=== PATIENT | female | born 1930 | race Caucasian/White ===

== ENCOUNTER 2017-10-16 11:23 | Emergency (ER) | payer MEDICARE, MEDICAID ==
[~2017-10-16] VITALS: Ht 144.8 cm; Wt 60.0 kg
[2017-10-16] MEDS ORDERED: ONDANSETRON HCL 4MG/2ML VIAL IV STA (12:08)
[2017-10-16] MEDS ORDERED: MORPHINE SULFATE 4 MG/ML CPJ (NOT FOR IM USE) IV STA (12:08)
[2017-10-16] MEDS ORDERED: SODIUM CHLORIDE 0.9% 500 ML IV ONE (12:09)
[2017-10-16 12:52] LABS: HEMATOCRIT. 33.7 % (36.0-48.0); HEMOGLOBIN. 11.6 g/dL (12.0-16.0); MEAN CORPUSCULAR HEMOGLOBIN 30.3 pg (28.0-32.0); MEAN CORPUSCULAR VOLUME 88.2 fL (81.0-99.0); PLATELET 206 x1000/uL (130-400); RED BLOOD CELL COUNT 3.83 mill/uL (4.2-5.4); RED CELL DISTRIBUTION WIDTH 15.2 % (11.6-14.6)
[2017-10-16 12:59] LABS: PROTHROMBIN TIME 10.5 sec (9.1-11.1)
[2017-10-16 13:00] LABS: CHLORIDE 106 mEq/L (98-107)
[2017-10-16 13:40] LABS: NUCLEATED RED BLOOD CELLS 1 /100 WBC; PLATELET ESTIMATE NORMAL
[2017-10-16 15:51] LABS: CLARITY URINE CLEAR (CLEAR); COLOR URINE YELLOW (YELLOW); KETONES URINE NEGATIVE (NEGATIVE); LEUKOCYTE ESTERASE URINE NEGATIVE (NEGATIVE); NITRITE URINE NEGATIVE (NEGATIVE); OCCULT BLOOD URINE NEGATIVE (NEGATIVE); PROTEIN URINE NEGATIVE (NEGATIVE); SPECIFIC GRAVITY URINE 1.014 (1.005-1.030); UROBILINOGEN URINE 0.2 E.U./dL (0.2-1.0)
[2017-10-16 16:33] VITALS: BP 136/55
== END 2017-10-16 16:42 | disposition home or self-care (01) ==
LOC: ER 11:23
DX: R53.1 Weakness (principal); R11.0 Nausea; R10.32 Left lower quadrant pain; M25.562 Pain in left knee
CPT/HCPCS: 36415; 71045; 73562; 80053; 81003; 83690; 83880; 84484; 85025; 85610; 93005; 96374; 96375; 99285; J2270; J2405; J7040

== ENCOUNTER 2018-07-12 12:20 | Emergency (ER) | payer MEDICARE, MEDICAID ==
[~2018-07-12] VITALS: Ht 152.4 cm; Wt 63.0 kg
[2018-07-12 13:43] LABS: BASOPHILS % 1.2 % (0.0-2.0); EOSINOPHILS % 2.5 % (0.0-5.0); HEMATOCRIT. 36.6 % (36.0-48.0); HEMOGLOBIN. 12.1 g/dL (12.0-16.0); LYMPHOCYTES % 26.9 % (20.0-50.0); MEAN CORPUSCULAR HEMOGLOBIN 30.3 pg (28.0-32.0); MEAN CORPUSCULAR VOLUME 91.2 fL (81.0-99.0); MEAN PLATELET VOLUME 10.9 fl (7.4-10.4); MONOCYTES % 9.9 % (2.0-8.0); NEUTROPHILS % 59.5 % (40.0-76.0); PLATELET 258 x1000/uL (130-400); RED BLOOD CELL COUNT 4.01 mill/uL (4.2-5.4); RED CELL DISTRIBUTION WIDTH 13.3 % (11.6-14.6)
[2018-07-12 13:45] LABS: CHLORIDE 101 mEq/L (98-107)
[2018-07-12] MEDS ORDERED: SODIUM CHLORIDE 0.9% 1,000 ML IV ONE (14:17)
[2018-07-12 14:42] LABS: CLARITY URINE CLEAR (CLEAR); COLOR URINE YELLOW (YELLOW); KETONES URINE NEGATIVE (NEGATIVE); LEUKOCYTE ESTERASE URINE NEGATIVE (NEGATIVE); NITRITE URINE NEGATIVE (NEGATIVE); OCCULT BLOOD URINE NEGATIVE (NEGATIVE); PH URINE 7.5 (4.5-8.0); PROTEIN URINE NEGATIVE (NEGATIVE); SPECIFIC GRAVITY URINE 1.019 (1.005-1.030); UROBILINOGEN URINE 0.2 E.U./dL (0.2-1.0)
[2018-07-12 15:04] LABS: CHLORIDE 103 mEq/L (98-107)
[2018-07-12 15:05] LABS: PROTHROMBIN TIME 10.6 sec (9.6-11.0)
[2018-07-12 15:11] LABS: PHOSPHORUS 3.3 mg/dL (2.5-4.9)
[2018-07-12 17:34] VITALS: BP 192/78
== END 2018-07-12 17:58 | disposition home or self-care (01) ==
LOC: ER 12:20 → CANBEDREQ 21:53
DX: R73.9 Hyperglycemia, unspecified (principal); E86.0 Dehydration
CPT/HCPCS: 36415; 71045; 80053; 81003; 82962; 83690; 83735; 84100; 85025; 85610; 93005; 96360; 99284; J7030